=== PATIENT | male | born 1970 | race Caucasian/White ===

== ENCOUNTER 2022-11-13 06:54 | Emergency (ER) | payer BC ==
[2022-11-13] MEDS ORDERED: Tetracaine HCl/PF 0.5% 4 ML Bottle EYERT ONE (07:38)
[2022-11-13] MEDS ORDERED: Take Home: Ciprofloxacin 0.3% Ophth Soln 5 ML, 1 Bottle Pack EYEBOTH ONE (08:08)
[2022-11-13] MEDS ORDERED: Diphtheria,Pertussis(Acell),Tetanus Vaccine 0.5 ML Syringe IM ONE (08:08)
== END 2022-11-13 08:42 | disposition home or self-care (01) ==
LOC: LL.ED 06:54
DX: S05.01XA Injury of conjunctiva and corneal abrasion without foreign body, right eye, initial encounter (principal); F17.210 Nicotine dependence, cigarettes, uncomplicated; Z91.018 Allergy to other foods
CPT/HCPCS: 90471; 90715; 99283-25; A9270-GY; J3490

== ENCOUNTER 2023-03-09 10:24 | Day surgery (SDC) | payer BC ==
[~2023-03-09 10:24] MED LIST: Midazolam 1 MG/ML 2 ML SDV ONE; Propofol 200 MG/20 ML SDV ONE
[2023-03-09] MEDS ORDERED: Sodium Chloride 0.9% 10 ML Syringe FLUSH PRN (10:30)
[2023-03-09] MEDS ORDERED: Lactated Ringers 1,000 ML IV SCH (10:30)
[2023-03-09] MEDS ORDERED: Propofol 200 MG/20 ML SDV ONE (12:10)
[2023-03-09 12:27] VITALS: BP 141/70; PULSE 78
== END 2023-03-09 12:50 | disposition home or self-care (01) ==
LOC: LL.SDS 10:24
PROVIDERS: ATTEND Surgery
DX: Z12.11 Encounter for screening for malignant neoplasm of colon (principal); K57.30 Diverticulosis of large intestine without perforation or abscess without bleeding; I10 Essential (primary) hypertension; K64.8 Other hemorrhoids; F17.200 Nicotine dependence, unspecified, uncomplicated; Z79.899 Other long term (current) drug therapy
CPT/HCPCS: J2250; J2704; J7120

== ENCOUNTER 2024-07-28 13:33 | Emergency (ER) | payer BC ==
[2024-07-28 13:59] LABS: BASOPHILS ABSOLUTE AUTO 0.03 K/uL (0.00-0.20); BASOPHILS PERCENT AUTO 0.4 % (0.0-2.0); EOSINOPHILS ABSOLUTE AUTO 0.21 K/uL (0.00-0.50); EOSINOPHILS PERCENT AUTO 2.7 % (0.0-5.0); HEMOGLOBIN 14.3 g/dL (13.1-16.8); IMMATURE GRAN ABSOLUTE AUTO 0.05 10^3/uL (0.00-0.04); IMMATURE GRAN PERCENT AUTO 0.6 % (0.0-0.4); LYMPHOCYTES ABSOLUTE AUTO 1.67 K/uL (0.50-3.50); LYMPHOCYTES PERCENT AUTO 21.5 % (10.0-50.0); MEAN CORPUSCULAR HEMOGLOBIN 29.1 pg (28.2-33.3); MEAN CORPUSCULAR HGB CONC 33.3 g/dL (31.7-36.0); MEAN CORPUSCULAR VOLUME 87.6 fL (84.0-98.0); MONOCYTES ABSOLUTE AUTO 0.46 K/uL (0.00-1.00); MONOCYTES PERCENT AUTO 5.9 % (2.0-14.0); NEUTROPHILS ABSOLUTE AUTO 5.33 K/uL (1.40-7.00); NEUTROPHILS PERCENT AUTO 68.9 % (45.0-80.0); PLATELET COUNT,PLT 292 K/uL (150-350); RED BLOOD CELL COUNT 4.91 M/uL (4.33-5.41); RED CELL DISTRIBUTION WIDTH 13.3 % (11.2-14.1); WHITE BLOOD CELL COUNT,WBC 7.8 K/uL (4.0-10.2)
[2024-07-28 14:22] LABS: ALBUMIN 3.7 g/dL (3.4-5.0); ANION GAP 8.2 meq/L (7-15); BILIRUBIN TOTAL 0.4 mg/dL (0.2-1.0); CALCIUM 8.4 mg/dL (8.5-10.1); CARBON DIOXIDE,CO2 26.8 mmol/L (21.0-32.0); CREATININE 1.07 mg/dL (0.51-1.17); EST CRCL DRUG DOSING (CG) 86.01 mL/min; POTASSIUM,K 3.8 mmol/L (3.5-5.1); PROTEIN TOTAL,TP 6.9 g/dL (6.4-8.2)
[2024-07-28 14:23] LABS: MAGNESIUM 2.1 mg/dL (1.8-2.4)
== END 2024-07-28 15:30 | disposition home or self-care (01) ==
LOC: LL.ED 13:33
DX: R07.89 Other chest pain (principal); I10 Essential (primary) hypertension; Z91.018 Allergy to other foods
CPT/HCPCS: 36415; 71046; 80053; 83735; 84484; 85025; 85379; 93010; 99284; 99285